=== PATIENT | male | born 1965 | race Caucasian/White ===

== ENCOUNTER 2016-08-31 14:39 | Emergency (ER) | payer OTHER, BC ==
--- NOTE | 2016-08-31 14:42 | ED Physician Documentation ---
PD HPI HEADACHE - Stated complaint Stated Complaint: SHARP PX BACK OF HEAD - History obtained from History obtained from: Patient - History of Present Illness Timing - onset: How many days ago (4 days ago) Timing - onset during: Other (random occurences not related to position, time, activity.) Timing - details: Abrupt onset, Intermittant Worst headache ever?: No: Worst headache ever? Location: Back, Right Quality: Other (he is having very brief stabbing pain at right occiput area intermittently, ranging from 3-7/10 in severity. These are brief and same location, repeat at random intervals. Not assoicated with visual change, altered mentation, syncope, focal neuro symptoms.) Associated symptoms: No: Fever, Stiff neck, Nausea, Vomiting, Weakness, Numbness , Eye pain, Vision changes Improved by: No: Rest, Dark room Worsened by: No: Light, Noise Contributing factors: No: Hypertension, Recent illness, Trauma Similar symptoms before: Has not had sx before Recently seen: Not recently seen Review of Systems Constitutional: denies: Fever, Chills Eyes: denies: Loss of vision, Decreased vision, Photophobia Ears: denies: Ear pain Nose: denies: Rhinorrhea / runny nose, Congestion Throat: denies: Sore throat Respiratory: denies: Cough GI: denies: Nausea, Vomiting, Diarrhea Skin: denies: Rash, Lesions Neurologic: denies: Focal weakness, Numbness, Near syncope, Confused, Altered mental status Endocrine: denies: Weight loss, Easy bruising / bleeding PD PAST MEDICAL HISTORY - Past Medical History Cardiovascular: None Respiratory: None Neuro: None Endocrine/Autoimmune: None - Present Medications Home Medications: Ambulatory Orders Medication Instructions Recorded Confirmed Aspirin 81 mg PO DAILY 08/31/16 08/31/16 Atorvastatin [Lipitor] 20 mg PO DAILY 08/31/16 08/31/16 Dexamethasone [Decadron] 4 mg PO DAILY #5 tablet 08/31/16 Hydrocodone/Acetaminophen [[place] 1 each PO Q6H PRN #25 tablet 08/31/16 5-325 Tablet] Methocarbamol [Robaxin] 500 mg PO Q6H PRN #25 tablet 08/31/16 - Allergies Allergies/Adverse Reactions: Allergies Allergy/AdvReac Type Severity Reaction Status Date / Time No Known Drug Allergies Allergy Verified 08/31/16 15:28 PD ED PE NORMAL - Vitals Vital signs reviewed: Yes - General General: Alert and oriented X 3, No acute distress (occasional winces of pain as the icepick pain hits. Then interval without pain/symptoms. ), Well developed /nourished - HEENT HEENT: Atraumatic, PERRL, EOMI, Ears normal, Moist mucous membranes, Pharynx benign, Other (no noted tenderness at area of right occiput. 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, No motor deficit, No sensory deficit, Normal speech - Psych Psych: Normal mood, Normal affect Results - Vitals Vitals: Vital Signs - 24 hr 08/31/16 08/31/16 16:09 17:22 Temperature 36.8 C Heart Rate 68 66 Respiratory 18 18 Rate Blood Pressure 130/80 128/76 O2 Saturation 96 99 Oxygen O2 Source Room air - Labs Labs: Laboratory Tests 08/31/16 08/31/16 08/31/16 15:28 15:28 15:28 WBC 7.3 RBC 5.09 Hgb 15.2 Hct 43.2 MCV 84.8 MCH 29.9 MCHC 35.3 RDW 12.7 Plt Count 158 MPV 9.4 Neut # 4.7 Lymph # 1.8 [place] # 0.6 Eos # 0.2 Baso # 0.0 Absolute Nucleated RBC 0.00 Nucleated RBCs 0.0 ESR 8 Sodium 138 Potassium 4.0 Chloride 104 Carbon Dioxide 28 Anion Gap 6.0 BUN 14 Creatinine 0.9 Estimated GFR (MDRD) 89 Glucose 88 Calcium 9.0 Total Bilirubin 0.5 AST 24 ALT 33 Alkaline Phosphatase 98 Total Protein 6.8 Albumin 4.0 Globulin 2.8 Albumin/Globulin Ratio 1.4 Lipase 23 - Rads (name of study) head angio Radiology: Prelim report reviewed (normal structure and vascular) PD MEDICAL DECISION MAKING - ED course Complexity details: considered differential (no trauma, no syumptoms of infection, no focal deficits. Likely muscular or migraine-category (ice pick, cluster). Will get CT-angio to evaluate for structural/vascular. ), d/w patient Departure - Departure Disposition: 01 Home, Self Care Clinical Impression: Sharp headache Condition: Stable Record reviewed to determine appropriate education?: Yes Instructions: ED Cephalgia Unspecified Follow-Up: Carol Ventura MD [Primary Care Provider] - Prescriptions: Dexamethasone [Decadron] 4 mg PO DAILY #5 tablet Hydrocodone/Acetaminophen [[place] 5-325 Tablet] 1 each PO Q6H PRN #25 tablet PRN Reason: Pain Methocarbamol [Robaxin] 500 mg PO Q6H PRN #25 tablet PRN Reason: Spasms Comments: Decadron for presume inflammation daily for 5 more days. Robaxin muscle relaxant as directed for stiffness/spasms. Add Tylenol or hydrocodone for pains as needed. Follow up PMD this week, particularly if not improved over the next 2 -3 days. Return sooner if other symptoms develop. Discharge Date/Time: 08/31/16 17:22
[2016-08-31] MEDS ORDERED: KETOROLAC 30 MG/ML VIAL IVP STA (15:17)
[2016-08-31] MEDS ORDERED: MORPHINE 2 MG/ML SYRINGE IVP STA (15:17)
[2016-08-31] MEDS ORDERED: KETOROLAC 30 MG/ML VIAL ONE (15:23)
[2016-08-31] MEDS ORDERED: MORPHINE 2 MG/ML SYRINGE ONE (15:24)
[2016-08-31 15:38] LABS: BASOPHILS % (AUTO) 0.6 %; EOSINOPHILS # (AUTO) 0.2 10^3/uL (0.0-0.7); EOSINOPHILS % (AUTO) 2.3 %; HCT - HEMATOCRIT 43.2 % (42.0-52.0); HGB - HEMOGLOBIN 15.2 g/dL (14.0-18.0); LYMPHOCYTES # (AUTO) 1.8 10^3/uL (1.5-3.5); LYMPHOCYTES % (AUTO) 24.1 %; MEAN CORPUSCULAR HEMOGLOBIN 29.9 pg (27.0-31.0); MEAN CORPUSCULAR HGB CONC 35.3 g/dL (32.0-36.0); MEAN CORPUSCULAR VOLUME 84.8 fL (80.0-94.0); MEAN PLATELET VOLUME 9.4 fL (7.4-11.4); MONOCYTES # (AUTO) 0.6 10^3/uL (0.0-1.0); MONOCYTES % (AUTO) 8.3 %; NEUTROPHILS # (AUTO) 4.7 10^3/uL (1.5-6.6); NEUTROPHILS % (AUTO) 64.7 %; RED BLOOD COUNT 5.09 10^6/uL (4.70-6.10); RED CELL DISTRIBUTION WIDTH 12.7 % (12.0-15.0); UNCORRECTED WHITE BLOOD COUNT 7.3 x10^3/uL; WHITE BLOOD COUNT 7.3 x10^3/uL (4.8-10.8)
[2016-08-31 15:48] LABS: ALBUMIN/GLOBULIN RATIO 1.4 (1.0-2.2); BILIRUBIN,TOTAL 0.5 mg/dL (0.2-1.0); CREATININE 0.9 mg/dL (0.6-1.2); TOTAL PROTEIN 6.8 g/dL (6.7-8.2)
[2016-08-31] MEDS ORDERED: IOPAMIDOL-300 100 ML VIAL IVP ONE (15:54)
--- NOTE | 2016-08-31 16:19 | CT Preliminary Report ---
Exam: CT Head Angio Impression: CT head: No intracranial hemorrhage, mass lesion, or other discrete acute intracranial process identified. Postcontrast head CT: No abnormal enhancement. No mass lesions. Head CTA: No evident intracranial arterial stenosis or aneurysm. SITE ID: [id number]
--- NOTE | 2016-08-31 16:22 | CT Report ---
EXAM: CTA HEAD COMPARISON: None. CLINICAL HISTORY: 4 days right posterior headaches TECHNIQUE: Axial CT images were obtained through the head during arterial phase after intravenous iodinated cont rast. 3 dimensional MIP reconstructions are created from axial data. Stenosis is measured by NASCET type criteria. In accordance with CT protocol optimization, one or more of the following dose reduction techniques w ere utilized for this exam: automated exposure control, adjustment of mA and/or KV based on patient s ize, or use of iterative reconstructive technique. FINDINGS: CT head: No intracranial hemorrhage. No mass lesions. No unexpected intra-axial or extra-axial fluid collectio ns. Ventricle size is normal. No lytic or blastic bone lesions are seen. Visualized orbits, paranasal sinuses and mastoids are unremarkable. No dense vessels. Postcontrast head CT: No abnormal parenchymal enhancement. No mass lesions. Head CTA: Right internal carotid artery: No evident stenosis or aneurysm is identified through the terminus. Right M1, M2 and visualized dista l segments are unremarkable. Right A1, A2 and visualized distal segments are unremarkable. Left internal carotid artery: No evident stenosis or aneurysm is identified through the terminus. Left M1, M2 and visualized distal segments are unremarkable. Left A1 segment is relatively hypoplastic. Posterior circulation: Each craniovertebral arteries are partially codominant. Right PICA origins well visualized there is f low in the distal right PICA. Left PICA origin is well visualized and flow in the distal left PICA. 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 No evident stenosis or aneurysm is identified to the terminus. Right P1, P2 and visualized distal seg ments are unremarkable. 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 Left P2 and visualized distal segments are unremarkable. Limited evaluation of the dural venous sinuses shows no evident abnormality. There are prominent arac hnoid granulations. Impression: CT head: No intracranial hemorrhage, mass lesion, or other discrete acute intracranial process identified. Postcontrast head CT: No abnormal enhancement. No mass lesions. Head CTA: No evident intracranial arterial stenosis or aneurysm. Referring Provider Line: [phone] SITE ID: [id number]
[2016-08-31] MEDS ORDERED: HYDROmorphone 1 MG/ML SYRINGE IVP STA (16:36)
[2016-08-31] MEDS ORDERED: DEXAMETHASONE 10 MG/ML VIAL IVP STA (16:36)
[2016-08-31] MEDS ORDERED: ONDANSETRON 4 MG/2 ML VIAL IVP STA (16:36)
[2016-08-31] MEDS ORDERED: DEXAMETHASONE 10 MG/ML VIAL ONE (17:09)
[2016-08-31] MEDS ORDERED: HYDROmorphone 1 MG/ML SYRINGE ONE (17:09)
[2016-08-31] MEDS ORDERED: ONDANSETRON 4 MG/2 ML VIAL ONE (17:09)
[2016-08-31 17:24] VITALS: BP 128/76
== END 2016-08-31 17:22 | disposition home or self-care (01) ==
LOC: ED 14:39
DX: R51 Headache (principal); Z79.82 Long term (current) use of aspirin
CPT/HCPCS: 36415; 70496; 80053; 83690; 85025; 85651; 96374; 96375; 99283; 99284; J1170; Q9967